=== PATIENT | female | born 2005 | race Caucasian/White ===

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

== ENCOUNTER → 2024-06-03 | Outpatient (REF) | payer BC ==
[2024-06-04 14:30] LABS: Trichomonas vaginalis (AMP) NOT DETECTED (NEGATIVE)
[2024-06-04 14:53] LABS: GC DNA AMPLIFICATION NEGATIVE (NEGATIVE)
== END ==
LOC: M SFHCADAM 12:38
PROVIDERS: ATTEND Physician Assistant
DX: Z11.3 Encounter for screening for infections with a predominantly sexual mode of transmission (principal); Z11.8 Encounter for screening for other infectious and parasitic diseases; N89.8 Other specified noninflammatory disorders of vagina

== ENCOUNTER → 2025-01-29 | Outpatient (CLI) | payer BC | LOC: M PLARAD 09:24 | PROVIDERS: ATTEND Physician Assistant | DX: M22.12 Recurrent subluxation of patella, left knee (principal) ==